=== PATIENT | male | born 1965 | race American Indian/Alaskan Native ===

== ENCOUNTER → 2018-06-19 | Outpatient (CLI) | payer OTHER ==
--- NOTE | 2018-06-20 16:33 | CPEEG ---
[f rep st] ELECTROENCEPHALOGRAM DATE OF STUDY: 06/19/2018 PROCEDURE: 24-hour ambulatory EEG. DATES OF STUDY: 06/19/2018 to 06/20/2018 INTERPRETATION: This 24-hour ambulatory EEG recording is normal. There were no potentially epileptogenic abnormalities present in the awake or sleep recordings. The patient provided diary did not report any clinical events. REPORT: This 24-hour ambulatory EEG recording contains 10 Hz alpha activity to the posterior head regions. There was no abnormal activation at rest. The patient became drowsy and fell into sustained sleep during the study. There was no abnormal activation during drowsiness, sleep, or during times of arousal. The patient provided diary did not report any clinical events. Only industrial relations representative samples of wakefulness, sleep, and patient provided symptoms (if any reported) were reviewed with this study. /[id number]/MODL MTDD
== END ==
LOC: FCPNEURO 14:40
PROVIDERS: ATTEND Internal Medicine
DX: R41.0 Disorientation, unspecified (principal)